=== PATIENT | male | born 1940 | race Caucasian/White ===

== ENCOUNTER → 2016-12-22 | Outpatient (CLI) | payer MEDICARE | END | disposition home or self-care (01) | LOC: GMAJ 10:34 | PROVIDERS: ATTEND Family Medicine | DX: Z12.5 Encounter for screening for malignant neoplasm of prostate (principal) ==

== ENCOUNTER 2017-01-30 12:39 | Emergency (ER) | payer MEDICARE ==
[2017-01-30 13:04] VITALS: TEMP 99
--- NOTE | 2017-01-30 13:15 | ED.PDOC ---
History of Present Illness - General Chief Complaint: Cardiovascular Problem Stated Complaint: palpitations Time Seen by Provider: 01/30/17 12:53 Source: patient, RN notes reviewed, Vital Signs reviewed Exam Limitations: no limitations - History of Present Illness Initial Comments: Patient comes in with c/o of palpitations for the past several days. Episodes are intermittent. No CP, SOB, Nausea or Diaphoresis with these episodes. He does report a similar episode in the past which he was sent to [facility] and then has seen Dr. Nettles in follow up. Last visit a year ago and he reports other than high blood pressure they have never discussed his episode of palpitations. Rest and relaxing seems to help the palpitations. Nothing seems to make them worse or bring them on. He does get some dizziness. He came in because he was told in the past that he did not get the usual heart attack symptoms and got concerned. He does reports some brief, mild CP that started today in ER. Timing/Duration: days - 3 Severity: moderate Location: substernal Activities at Onset: none Prior Chest Pain/Cardiac Workup: cardiac cath, other - Coronary stents Improving Factors: rest Worsening Factors: nothing Nitro Today/Relief: no nitro taken today Aspirin Treatment Today: no aspirin today Associated Symptoms: chest pain Allergies/Adverse Reactions: Allergies UNOBTAINABLE Allergy (Verified 01/30/17 12:58) Home Medications: Ambulatory Orders Atorvastatin Calcium [Lipitor] 40 mg PO DAILY 01/30/17 Clopidogrel Bisulfate [Plavix] 75 mg PO QD 01/30/17 Metoprolol Succinate [Metoprolol Succinate ER] 50 mg PO DAILY 01/30/17 Valsartan-Hydrochlorothiazide [Valsartan/Hydrochlorothia 160-12.5 mg] 1 tab PO DAILY 01/30/17 Review of Systems - Review of Systems Constitutional: States: no symptoms reported Respiratory: States: short of breath - but no change from baseline Cardiology: States: chest pain - mild, brief, intermittent episodes today only, palpitations. Denies: syncope Gastrointestinal/Abdominal: States: no symptoms reported. Denies: nausea Musculoskeletal: States: no symptoms reported Skin: States: no symptoms reported Neurological: States: other - Dizziness. Denies: headache, numbness, paresthesia, tingling, weakness All other Systems: No Change from Baseline Past Medical History (General) - Patient Medical History Hx Cardiac Disorders: Yes Hx Congestive Heart Failure: No Hx Diabetes: No - Vaccination History Hx Influenza Vaccination: Yes Hx Pneumococcal Vaccination: Yes - Social History Hx Tobacco Use: Yes Family Medical History - Family History Father Family History: Unknown Living Status: Unknown Physical Exam - Physical Exam General Appearance: Alert, Comfortable, No apparent distress, Well Developed, Well Groomed, Well Hydrated, Well Nourished Neck: non-tender, supple, normal inspection Respiratory: lungs clear, normal breath sounds, no respiratory distress, no accessory muscle use Cardiovascular/Chest: normal peripheral pulses, regular rate, rhythm, no edema, no gallop, no JVD, no murmur, other - HR initially 131, then dropped to 71 and during exam was 90-95 Peripheral Pulses: posterior tibialis,right: 1+, posterior tibialis,left: 1+ Gastrointestinal/Abdominal: normal bowel sounds, non tender, soft, no organomegaly, no pulsatile mass Extremity: normal range of motion, non-tender, normal inspection, no pedal edema Neurologic: alert, normal mood/affect, oriented x 3 Skin Exam: normal color, warm/dry Comments: Vital Signs - 8 hr 01/30/17 01/30/17 01/30/17 12:54 13:08 13:09 Temperature 99 F Pulse Rate 131 H Pulse Rate [ 131 H 131 H Left Brachial] Respiratory 20 Rate Blood Pressure 194/99 [Left Arm] O2 Sat by Pulse 99 Oximetry Vital Signs 01/30/17 01/30/17 01/30/17 12:54 13:08 13:09 Temperature 99 F Pulse Rate 131 H Pulse Rate [ 131 H 131 H Left Brachial] Respiratory 20 Rate Blood Pressure 194/99 [Left Arm] O2 Sat by Pulse 99 Oximetry 01/30/17 01/30/17 01/30/17 13:51 14:46 15:40 Temperature Pulse Rate Pulse Rate [ 68 52 L 54 L Left Brachial] Respiratory 16 16 16 Rate Blood Pressure 125/67 129/54 131/58 [Left Arm] O2 Sat by Pulse 97 98 96 Oximetry Progress - Progress Progress: 01/30/17 13:52 HR 68, BP 125/67 w/o intervention. Elevated BUN, Cr and CK-MB so will give a 1L NS bolus and plan to repeat cardiac labs in 3 hours. 01/30/17 17:05 No further episodes of tachycardia Second set of cardiac enzymes are normal. Will d/c with follow up with PCP for halter monitor and with Cardiology. - Results/Orders Results/Orders: Laboratory Tests 01/30/17 01/30/17 01/30/17 13:12 13:12 13:12 WBC 7.2 RBC 4.68 L Hgb 15.3 Hct 45.5 MCV 97.2 H MCH 32.6 H MCHC 33.7 RDW 13.0 Plt Count 175 MPV 8.5 Absolute Neuts (auto) 4.20 Absolute Lymphs (auto) 2.20 Absolute Monos (auto) 0.60 Absolute Eos (auto) 0.10 Absolute Basos (auto) 0.10 Neutrophils % 59.1 Lymphocytes % 30.1 Monocytes % 7.9 Eosinophils % 2.0 Basophils % 0.9 D-Dimer, Quantitative 277 H* Sodium 140 Potassium 4.1 Chloride 103 Carbon Dioxide 25 Anion Gap 16.1 BUN 27 H Creatinine 1.38 H BUN/Creatinine Ratio 19.6 Random Glucose 112 H Serum Osmolality 285.3 Calcium 9.6 Total Bilirubin 1.6 H AST 25 ALT 20 Alkaline Phosphatase 54 Creatine Kinase 190 H CK-MB (CK-2) 4.6 H* CK-MB (CK-2) % 2.42 Troponin I 0.02 B-Natriuretic Peptide 16.4 Serum Total Protein 7.7 Albumin 4.6 Globulin 3.1 Albumin/Globulin Ratio 1.5 01/30/17 16:12 WBC RBC Hgb Hct MCV MCH MCHC RDW Plt Count MPV Absolute Neuts (auto) Absolute Lymphs (auto) Absolute Monos (auto) Absolute Eos (auto) Absolute Basos (auto) Neutrophils % Lymphocytes % Monocytes % Eosinophils % Basophils % D-Dimer, Quantitative Sodium Potassium Chloride Carbon Dioxide Anion Gap BUN Creatinine BUN/Creatinine Ratio Random Glucose Serum Osmolality Calcium Total Bilirubin AST ALT Alkaline Phosphatase Creatine Kinase 177 H CK-MB (CK-2) 4.0 CK-MB (CK-2) % 2.26 Troponin I 0.02 B-Natriuretic Peptide Serum Total Protein Albumin Globulin Albumin/Globulin Ratio - EKG/XRAY/CT EKG: Sinus, Tachy, nonspecific ST T wave Chg Comments: Occ PVC's, Rate 132 XRAY: chest - Normal Departure - Departure Clinical Impression: Sinus tachycardia Time of Disposition: 17:07 Disposition: Discharge to Home or Self Care Condition: Good Departure Forms: ED Discharge - Pt. Copy, Patient Portal Self Enrollment Instructions: DI for Tachycardia Diet: resume usual diet Activity: increase activity as tolerated Referrals: Mateus Early MD [Primary Care Provider] - 1-5 Days (For halter monitor) TING NETTLES MD [Consulting Staff] - 1-2 Weeks Home Medications: Ambulatory Orders Atorvastatin Calcium [Lipitor] 40 mg PO DAILY 01/30/17 Clopidogrel Bisulfate [Plavix] 75 mg PO QD 01/30/17 Metoprolol Succinate [Metoprolol Succinate ER] 50 mg PO DAILY 01/30/17 Valsartan-Hydrochlorothiazide [Valsartan/Hydrochlorothia 160-12.5 mg] 1 tab PO DAILY 01/30/17
--- NOTE | 2017-01-30 13:23 | RAD ---
EXAM DESCRIPTION: Chest,1 View CLINICAL HISTORY: Palpitations COMPARISON: None available FINDINGS: The cardiomediastinal silhouette is unremarkable. There is no airspace consolidation or pleural effusion. The bronchovascular markings are within normal limits, and the lungs are not hyperinflated. There is no pneumothorax or acute fracture. IMPRESSION: Negative exam. Electronically signed by: Thomas Barker MD 01/30/2017 1:22 PM CDT Workstation: [id number]
[2017-01-30] MEDS ORDERED: METOPROLOL SUCCINATE XL 50 MG TAB PO ONE (13:49)
[2017-01-30] MEDS ORDERED: SODIUM CHLORIDE 0.9% 1000ML 1,000 ML IVS ONE (13:49)
[2017-01-30 17:37] VITALS: BP 143/61; O2SAT 99
== END 2017-01-30 17:36 | disposition home or self-care (01) ==
LOC: ER 12:39
DX: R00.0 Tachycardia, unspecified (principal); Z98.61 Coronary angioplasty status; Z79.02 Long term (current) use of antithrombotics/antiplatelets
CPT/HCPCS: 36415; 71010; 80053; 82550; 82553; 83880; 84484; 85025; 85379; 93005; J7030

== ENCOUNTER → 2018-05-19 | Outpatient (CLI) | payer MEDICARE | LOC: GMAJ 10:51 | PROVIDERS: ATTEND Family Medicine | DX: Z12.5 Encounter for screening for malignant neoplasm of prostate (principal) ==

== ENCOUNTER → 2019-05-18 | Outpatient (CLI) | payer MEDICARE | LOC: GMAJ 11:06 | PROVIDERS: ATTEND Family Medicine | DX: Z12.5 Encounter for screening for malignant neoplasm of prostate (principal); I10 Essential (primary) hypertension; E78.00 Pure hypercholesterolemia, unspecified ==

== ENCOUNTER → 2019-06-07 | Outpatient (CLI) | payer MEDICARE ==
--- NOTE | 2019-06-09 09:31 | MRI ---
EXAM DESCRIPTION: Brain w/o Contrast: MRI. CLINICAL HISTORY: OTHER PERIPHERAL VERTIGO, BILATERAL COMPARISON: None. TECHNIQUE: Multiplanar, high-field MRI unit, multiple diffusion sequences, multiple conventional sequences without contrast. FINDINGS: Hyperintense focus of FLAIR and T2-weighted signal in the right posterior frontal subcortical white matter abutting the right frontal centrum semiovale. Minimal periventricular white matter hyperintense T2 and FLAIR signal symmetric bilaterally. Smaller focus of hyperintense FLAIR and T2 signal in the periventricular white matter medial to the right temporal lobe at the level of the ventricular base.. Also a small hyperintense focus on both sequences in the cortex of the posterior right parietal lobe near the vertex No hemorrhage, no cerebral edema, no mass-effect. No diffusion restriction bilaterally. Normal signal in the bilateral basal ganglia. Normal signal in the brainstem and cerebellar hemispheres. No hemorrhage, no parenchymal edema, no mass-effect. No diffusion restriction. Concordance of the diffusion and non-diffusion sequences with no diffusion restriction. Cortical sulci, ventricles, and other CSF spaces, and the subdural spaces are normally configured for the patient's age. No effacement or displacement. No midline shift. No extra-axial hemorrhage. Normal flow signal void in the major vessels of the hamilton Hoang, and the venous sinuses. IACs are symmetric bilaterally. Normal signal in the bilateral mastoid air cells. No mass effect in the bilateral cerebellopontine angles. Pituitary gland occupies most of the sella. Base of the cerebellar tonsils is just above the foramen magnum. Included paranasal sinuses with minimal mucosal thickening.. The bony calvarium is intact. IMPRESSION: 1. Focal regions of white matter abnormality as described above, mostly right cerebellar hemisphere except for left periventricular signal abutting the frontal horn and the left frontal lobe. Most likely related to cerebral microvascular disease and/or aging. 2. normal noncontrast MRI diffusion study with no evidence of acute or subacute, significant ischemia or infarction. Electronically signed by: Jake Salgado MD 06/08/2019 11:27 AM [employer]
== END ==
LOC: MRI 12:40
PROVIDERS: ATTEND Family Medicine
DX: H81.393 Other peripheral vertigo, bilateral (principal); R90.82 White matter disease, unspecified

== ENCOUNTER → 2020-05-28 | Outpatient (CLI) | payer MEDICARE | LOC: GMAJ 11:05 | PROVIDERS: ATTEND Family Medicine | DX: Z12.5 Encounter for screening for malignant neoplasm of prostate (principal); I10 Essential (primary) hypertension; E78.00 Pure hypercholesterolemia, unspecified ==